=== PATIENT | male | born 1955 | race Caucasian/White ===

== ENCOUNTER 2017-12-29 13:15 | Emergency (ER) | payer OTHER ==
[2017-12-29] MEDS ORDERED: NA CHLORIDE 0.9% 500 ML ONE (13:32)
--- NOTE | 2017-12-29 13:58 | RAD REPORT ---
EXAM DESCRIPTION: CT - Head Brain Wo Cont - 12/29/2017 1:47 pm CLINICAL HISTORY: Syncope COMPARISON: None. TECHNIQUE: Computed axial tomography of the head was obtained. IV contrast was not requested. All CT scans are performed using dose optimization technique as appropriate and may include automated exposure control or mA/KV adjustment according to patient size. FINDINGS: An intracranial bleed is not seen . The ventricles are normal in caliber. No extra-axial fluid collection is noted. Fluid within the sinuses/ mastoids is not seen. IMPRESSION: No acute intracranial abnormality is seen. If patient's symptoms persist MRI of the bra in would be recommended.
[2017-12-29 14:19] LABS: Absolute Lymphocytes (CBC) 1.7 K/uL (0.7-4.9); Absolute Monocytes 0.7 K/uL (0.1-1.3); Absolute Neutrophil 5.8 K/uL (1.8-8.0); Basophils % 0.5 % (0-1.3); Eosinophils % 1.2 % (0-4.4); Hematocrit 42.4 % (39.6-49.0); Lymphocytes % 20.9 % (15.3-44.8); MCH 27.8 pg (27.0-35.0); MCV 84.8 fL (80-100); MPV 8.4 fL (7.6-11.3); Monocytes % 8.3 % (3.3-12.3)
[2017-12-29 14:58] LABS: BUN Blood Urea Nitrogen 20 mg/dL (7-18); Bicarbonate 28 mmol/L (21-32); CKMB Creatine Kinase MB < 1.0 ng/mL (0.3-3.6); Creatine Phosphokinase 54 U/L (39-308); Glucose Level 98 mg/dL (74-106); Potassium 3.7 mmol/L (3.5-5.1); Sodium Level 133 mmol/L (136-145)
--- NOTE | 2017-12-29 15:34 | ER ---
Nurse's Notes [facility] Name: Tomás Saldivar Age: 62 yrs Sex: Male : 1955 Arrival Date: 12/29/2017 Time: 13:20 Bed 5 Private MD: Out, [facility] Diagnosis: Syncope and collapse;Dehydration Presentation: 12/29 13:21 Presenting complaint: Patient states: "I was just sitting in my chair and I drank some aa5 water and felt like I needed to burp but then I got some chest pain and passed out". Syncopal episode was witnessed by pt's boss. Pt currently denies pain. Pt states "I've been on a low carb diet since August so I don't know if that has anything to do with it". 13:21 Transition of care: patient was not received from another setting of care. Onset of aa5 symptoms was December 29, 2017. Risk Assessment: Do you want to hurt yourself or someone else? Patient reports no desire to harm self or others. Initial Sepsis Screen: Does the patient meet any 2 criteria? No. Patient's initial sepsis screen is negative. Does the patient have a suspected source of infection? No. Patient's initial sepsis screen is negative. Care prior to arrival: None. 13:21 Method Of Arrival: Ambulatory aa5 13:21 Acuity: LEISA 3 aa5 Historical: - Allergies: 13:24 No Known Allergies; aa5 - PMHx: 13:24 Hypertension; aa5 - PSHx: 13:24 nose; knee; aa5 - Immunization history:: Adult Immunizations up to date. - Social history:: Smoking status: Patient/guardian denies using tobacco. - Ebola Screening: : No symptoms or risks identified at this time. - Family history:: not pertinent. - Hospitalizations: : No recent hospitalization is reported. Screenin:45 Abuse screen: Denies threats or abuse. Denies injuries from another. Nutritional jl7 screening: No deficits noted. Tuberculosis screening: No symptoms or risk factors identified. Fall Risk IV access (20 points). Total Munoz Fall Scale indicates No Risk (0-24 pts). Vital Signs: 13:24 BP 116 / 76; Pulse 79; Resp 16 S; Temp 98.0(TE); Pulse Ox 95% on R/A; Weight 106.14 kg aa5 (R); Height 6 ft. 1 in. (185.42 cm) (R); Pain 0/10; 15:48 BP 124 / 70; Pulse 70; Resp 22; Pulse Ox 99% ; Pain 0/10; jl7 13:24 Body Mass Index 30.87 (106.14 kg, 185.42 cm) aa5 ED Course: 13:20 Patient arrived in ED. sb2 13:20 Out, of Town is Private Physician. sb2 13:20 Abdirizak Kohli MD is Attending Physician. rn 13:21 Dacia Momin, RN is Primary Nurse. aj 13:21 Arm band placed on Patient placed in an exam room, on a stretcher. aa5 13:24 Triage completed. aa 13:40 EKG done, by health technician. reviewed by Abdirizak Kohli MD. 3 13:40 Inserted saline lock: 22 gauge in right forearm, using aseptic technique. Blood jp3 collected. Missed attempt(s): 20 gauge in right antecubital area. 13:[address] via wheelchair. 13:47 CT completed. Patient tolerated procedure well. Patient moved back from CT. 13:47 CT Head Brain wo Cont In Process Unspecified. EDMS 14:10 Initial lab(s) drawn, by me, sent to lab. jp3 15:39 Urine collected: clean catch specimen, clear, opal colored. jp3 15:45 Patient has correct armband on for positive identification. Placed in gown. Bed in low jl7 position. Call light in reach. Side rails up X 1. case monitor on. Pulse ox on. NIBP on. 15:52 No provider procedures requiring assistance completed. IV discontinued, intact, jl7 bleeding controlled, No redness/swelling at site. Pressure dressing applied. Administered Medications: 14:38 Drug: NS 0.9% 500 ml Route: IV; Rate: bolus; Site: right antecubital; hj Outcome: 15:33 Discharge ordered by . rn 15:49 Discharged to home ambulatory. jl7 15:49 Condition: stable 15:49 Discharge instructions given to patient, family, Instructed on discharge instructions, follow up and referral plans. Demonstrated understanding of instructions, follow-up care. 15:52 Patient left the ED. jl7 Signatures: Dispatcher [employer] EDMS Dacia Momin, RN RN Abdirizak Amador MD MD rn Calderon, Flaca, SCOTTIE RN aa5 Celeste Christensen Henry, RN RN gino Marcelo, SCOTTIE Orozco RN jl7 Starr Huitron 2 Lesa Sun 3 Ashish Shahid jp3
--- NOTE | 2017-12-29 15:34 | EDPHYS ---
Physician Documentation [facility] Name: Tomás Saldivar Age: 62 yrs Sex: Male : 1955 Arrival Date: 12/29/2017 Time: 13:20 Bed 5 Private MD: Out, [facility] ED Physician Abdirizak Kohli HPI: 12/29 13:29 This 62 yrs old Male presents to ER via Ambulatory with complaints of Syncope.rn 13:29 The patient has experienced syncope. Onset: The symptoms/episode began/occurred just rn prior to arrival. Duration: This was a single episode, that lasted 10 second(s). Associated injury: The patient did not suffer any apparent associated injury. Current symptoms: Currently, the patient is not experiencing any symptoms. The patient has not experienced similar symptoms in the past. Reports eating, drank water, felt a "bubble in stomach", felt like something was stuck in stomach, went awat but passed out and woke up on floor, no seizure like activity. NO traumatic complaints.. Historical: - Allergies: 13:24 No Known Allergies; aa5 - PMHx: 13:24 Hypertension; aa5 - PSHx: 13:24 nose; knee; aa5 - Immunization history:: Adult Immunizations up to date. - Social history:: Smoking status: Patient/guardian denies using tobacco. - Ebola Screening: : No symptoms or risks identified at this time. - Family history:: not pertinent. - Hospitalizations: : No recent hospitalization is reported. ROS: 13:29 Constitutional: Negative for fever, chills, and weight loss, Eyes: Negative for injury, rn pain, redness, and discharge, Cardiovascular: Negative for chest pain, palpitations, and edema, Respiratory: Negative for shortness of breath, cough, wheezing, and pleuritic chest pain, Abdomen/GI: Negative for nausea, vomiting, diarrhea, and constipation, MS/Extremity: Negative for injury and deformity, Skin: Negative for injury, rash, and discoloration, Neuro: Negative for headache, weakness, numbness, tingling, and seizure. Exam: 13:29 Constitutional: This is a well developed, well nourished patient who is awake, alert, rn and in no acute distress. Head/Face: Normocephalic, atraumatic. Eyes: Pupils equal round and reactive to light, extra-ocular motions intact. Lids and lashes normal. Conjunctiva and sclera are non-icteric and not injected. Cornea within normal limits. Periorbital areas with no swelling, redness, or edema. Neck: Trachea midline, no thyromegaly or masses palpated, and no cervical lymphadenopathy. Supple, full range of motion without nuchal rigidity, or vertebral point tenderness. No Meningismus. Cardiovascular: Regular rate and rhythm with a normal S1 and S2. No gallops, murmurs, or rubs. Normal PMI, no JVD. No pulse deficits. Respiratory: Lungs have equal breath sounds bilaterally, clear to auscultation and percussion. No rales, rhonchi or wheezes noted. No increased work of breathing, no retractions or nasal flaring. Abdomen/GI: Soft, non-tender, with normal bowel sounds. No distension or tympany. No guarding or rebound. No evidence of tenderness throughout. MS/ Extremity: Pulses equal, no cyanosis. Neurovascular intact. Full, normal range of motion. Equal circumference. Neuro: Awake and alert, GCS 15, oriented to person, place, time, and situation. Cranial nerves II-XII grossly intact. Motor strength 5/5 in all extremities. Sensory grossly intact. Cerebellar exam normal. Normal gait. Vital Signs: 13:24 BP 116 / 76; Pulse 79; Resp 16 S; Temp 98.0(TE); Pulse Ox 95% on R/A; Weight 106.14 kg aa5 (R); Height 6 ft. 1 in. (185.42 cm) (R); Pain 0/10; 15:48 BP 124 / 70; Pulse 70; Resp 22; Pulse Ox 99% ; Pain 0/10; jl7 13:24 Body Mass Index 30.87 (106.14 kg, 185.42 cm) aa5 MDM: 13:20 Patient medically screened. rn 15:33 Differential Diagnosis: cardiac arrhythmia, idiopathic syncope, vasovagal episode. Data rn reviewed: vital signs, nurses notes, lab test result(s), EKG, radiologic studies, CT scan, and as a result, I will discharge patient. Counseling: I had a detailed discussion with the patient and/or guardian regarding: the historical points, exam findings, and any diagnostic results supporting the discharge/admit diagnosis, lab results, radiology results, the need for outpatient follow up, to return to the emergency department if symptoms worsen or persist or if there are any questions or concerns that arise at home. Response to treatment: the patient's symptoms have markedly improved after treatment, the patient's condition has returned to base line, the patient is now symptom free, patient is well hydrated. and as a result, I will discharge patient. Special discussion: I discussed with the patient/guardian in detail that at this point there is no indication for admission to the hospital. It is understood, however, that if the symptoms persist or worsen the patient needs to return immediately for re-evaluation. 12/29 13:28 Order name: Basic Metabolic Panel; Complete Time: 15:28 rn 12/29 13:28 Order name: CBC with Diff; Complete Time: 15:28 rn 12/29 13:28 Order name: CT Head Brain wo Cont; Complete Time: 14:20 rn 12/29 13:28 Order name: Ckmb; Complete Time: 15:28 rn 12/29 13:28 Order name: CPK; Complete Time: 15:28 rn 12/29 13:28 Order name: Troponin (emerg Dept Use Only); Complete Time: 15:28 rn 12/29 13:28 Order name: EKG; Complete Time: 13:29 rn 12/29 13:28 Order name: Cardiac monitoring; Complete Time: 13:29 rn 12/29 13:28 Order name: EKG - Nurse/Tech; Complete Time: 13:57 rn 12/29 13:28 Order name: IV Saline Lock; Complete Time: 13:57 rn 12/29 13:28 Order name: Labs collected and sent; Complete Time: 14:38 rn 12/29 13:28 Order name: O2 Per Protocol; Complete Time: 13:29 rn 12/29 13:28 Order name: O2 Sat Monitoring; Complete Time: 13:29 rn Administered Medications: 14:38 Drug: NS 0.9% 500 ml Route: IV; Rate: bolus; Site: right antecubital; hj Disposition: 12/29/17 15:33 Discharged to Home. Impression: Syncope and collapse, Dehydration. - Condition is Stable. - Discharge Instructions: Dehydration, Adult, Syncope. - Medication Reconciliation Form, Thank You Letter, Antibiotic Education, Prescription Opioid Use, Work release form form. - Follow up: Private Physician; When: As needed; Reason: Recheck today's complaints, Re-evaluation by your physician. - Problem is new. - Symptoms have improved. Signatures: Dispatcher [employer] EDMS Abdirizak Kohli MD MD rn Calderon, Audri RN RN aa5 Prince Frye, RN RN Pam Marcelo RN RN jl7 Corrections: (The following items were deleted from the chart) 15:52 15:33 12/29/2017 15:33 Discharged to Home. Impression: Syncope and collapse; jl7 Dehydration. Condition is Stable. Forms are Medication Reconciliation Form, Thank You Letter, Antibiotic Education, Prescription Opioid Use. Follow up: Private Physician; When: As needed; Reason: Recheck today's complaints, Re-evaluation by your physician. Problem is new. Symptoms have improved. rn
--- NOTE | 2017-12-30 10:42 | EKG ---
Test Date: 2017-12-29 Test Time: 13:35:19 Sales Effectiveness Manager: WINDY MEASUREMENT RESULTS: Intervals: Rate: 78 SC: 156 QRSD: 74 QT: 370 QTc: 421 [place]: P: 33 SC: 156 QRS: -41 T: 45 INTERPRETIVE STATEMENTS: Sinus rhythm with occasional premature ventricular complexes Left axis deviation Low voltage QRS Cannot rule out Anterior infarct, age undetermined Abnormal ECG No previous ECG available for comparison Electronically Signed On 12-30-17 10:41:45 CDT by Adrian Dumont
== END 2017-12-29 15:52 | disposition home or self-care (01) ==
LOC: ER 13:15
DX: E86.0 Dehydration (principal); I10 Essential (primary) hypertension
CPT/HCPCS: 36415; 70450; 80048; 82550; 82553; 84484; 85025; 93005; 99285